=== PATIENT | female | born 1935 | race Caucasian/White ===

== ENCOUNTER 2019-09-04 04:17 | Inpatient (IN) ==
--- OUTSIDE RECORDS SUMMARY | 2019-09-04 04:20 | External Medical Summary | Continuity of Care Document ---
:1935 Author Name Carlos Rollins Address Unavailable Unavailable , Care Team Providers Name Role Phone Harpreet Rollins Unavailable [email or web address] Active medical history not documented Allergies and Adverse Reactions Allergy history not documented Medications Medications not documented Procedures Procedures not documented Immunizations Immunizations not documented Plan of Treatment Planned Observations Planned Goals not documented Results No Known Results Results not documented
[2019-09-04] MEDS ORDERED: SODIUM CHLORIDE 0.9% 1000ML 1,000 ML IV SCH (06:15)
[2019-09-04 06:38] LABS: Basophils # (auto) 0.01 K/uL (0-0.2); Basophils % (auto) 0.1 %; Eosinophils # (auto) 0.02 K/uL (0-0.5); Eosinophils % (auto) 0.1 %; Hematocrit (blood only) 45.4 % (37-47); Hemoglobin 15.5 g/dL (12.0-16.0); Immature Granulocytes # (auto) 0.04 K/uL (0.00-0.02); Immature Granulocytes % (auto) 0.3 %; Lymphocytes # (auto) 0.93 K/uL (1.2-3.4); Lymphocytes % (auto) 6.7 %; Mean Corpuscular Hemoglobin 31.1 pg (25-34); Mean Corpuscular Hgb Conc 34.1 g/dL (32-36); Mean Corpuscular Volume 91.2 fL (80-100); Mean Platelet Volume 11.5 fL (7.4-10.4); Monocytes % (auto) 7.3 %; Neutrophils # (auto) 11.79 K/uL (1.4-6.5); Neutrophils % (auto) 85.5 %; Platelet Count 161 K/uL (130-400); RDW Coefficient of Variation 12.7 % (11.5-14.5); RDW Standard Deviation 42.2 fL (36.4-46.3); Red Blood Count 4.98 M/uL (4.2-5.4); White Blood Count 13.79 K/uL (4.8-10.8)
[2019-09-04 06:50] LABS: INR 1.1 (0.9-1.1); Partial Thromboplastin Ratio 0.9; Partial Thromboplastin Time 24.7 Seconds (21.0-31.0); Prothrombin Time 10.9 Seconds (9.0-12.0)
[2019-09-04 06:57] LABS: BUN Creatinine Ratio 23.4 (10-20); Blood Urea Nitrogen 17 mg/dl (7-18); Calcium 10.1 mg/dl (8.5-10.1); Carbon Dioxide 30 mmol/L (21-32); Chloride 103 mmol/L (98-107); Est GFR (African American) 87.4; Est GFR (Non-African American) 75.4; Glucose 110 mg/dl (70-99); Potassium 4.3 mmol/L (3.5-5.1); Sodium 140 mmol/L (136-145)
[2019-09-04 06:59] LABS: Appearance Urine Clear (Clear); Bilirubin Urine Negative (Negative); Blood Urine Negative (Negative); Color Urine Yellow; Glucose Urine UA Negative (Negative); Ketones Urine Trace (Negative); Leukocyte Esterase Urine Negative (Negative); Nitrite Urine Negative (Negative); Protein Urine Negative (Negative); Specific Gravity Urine 1.012 (1.000-1.030); Urobilinogen Urine Negative (Negative)
[2019-09-04] MEDS: MoRPHine SULFATE 2 MG/ML CARP IV PRN ×4 (07:26→23:55)
--- NOTE | 2019-09-04 08:03 | XRay Report ---
SINGLE VIEW LEFT KNEE CLINICAL HISTORY: Left knee injury. FINDINGS: A crosstable lateral view of the left knee is obtained. No prior studies are available for comparison at the time of dictation. The AP view could not be obtained as the patient was unable to e xtend the knee. The skeletal structures are osteopenic. There is no radiographic evidence of fracture on this lateral view. Degenerative narrowing is seen at the patellofemoral articulation. There is no significant joint effusion. The overlying soft tissues are normal as visualized. IMPRESSION: There is no radiographic evidence of left knee fracture on this lateral projection. Electronically signed by: Michael Molina M.D. 09/04/2019 8:02 AM
--- NOTE | 2019-09-04 08:06 | XRay Report ---
SINGLE VIEW PELVIS; SINGLE VIEW LEFT HIP CLINICAL HISTORY: Fall with left leg injury. FINDINGS: An AP view of the pelvis with frog-leg views of the left hip are obtained. No prior studies are available for comparison at the time of dictation. The skeletal structures are osteopenic. There is an impacted and distracted subcapital fracture of the left femur. There is superior displacement of the femoral neck. No additional fracture is seen involving the right hip or the bony pelvis. Moder ate to advanced joint space narrowing is present in both hips. Degenerative sclerosis is seen in the sacroiliac joints. Soft tissue edema overlies the left hip. No bowel obstruction is seen. There is mo derate colonic fecal retention. IMPRESSION: 1. There is an impacted and distracted subcapital fracture of the left femur with overlying soft tiss ue edema. 2. No additional fracture is seen involving the hips or bony pelvis. Electronically signed by: Michael Molina M.D. 09/04/2019 8:04 AM
--- NOTE | 2019-09-04 08:07 | XRay Report ---
SINGLE VIEW CHEST CLINICAL HISTORY: Trauma. Fall. FINDINGS: An AP, portable, semierect chest radiograph is compared to study dated 07/01/2007. The exam ination is degraded by portable technique and patient rotation. The patient's head partially obscures the apices. The heart is mildly enlarged noting atherosclerotic calcification of the thoracic aorta. The pulmonary vasculature is noncongested. Chronic interstitial thickening is similar to previous. N o airspace consolidation or large pleural effusion is identified. No pneumothorax is seen. The skelet al structures are osteopenic. The bony thorax is grossly intact. Advanced degenerative change and def ormity is present in the shoulders. IMPRESSION: Mild cardiac enlargement with no acute cardiopulmonary abnormality. ACT 112: Negative or not required by law. Electronically signed by: Michael Molina M.D. 09/04/2019 8:06 AM
[2019-09-04] MEDS ORDERED: POLYETHYLENE (MIRALAX) 17 GM PACK PO PRN (08:49)
[2019-09-04] MEDS ORDERED: ACETAMINOPHEN 325 MG TAB PO PRN (08:49)
[2019-09-04] MEDS ORDERED: ONDANSETRON INJ 2 MG/ML 2 ML VIAL IV PRN (08:49)
--- NOTE | 2019-09-04 08:55 | Discharge Summary ---
Date of Service September 04, 2019 Discharge Data Allergies Allergy/AdvReac Type Severity Reaction Status Date / Time iodine Allergy Mild rash Verified 09/04/19 04:40 Sulfa (Sulfonamide Allergy Mild RASH Verified 09/04/19 04:40 Antibiotics) Consultations 09/04/19 06:10 Consult Case Management - Discharge Planning Routine 09/04/19 06:52 ED Decision to Admit Stat 09/04/19 07:04 Consult Orthopedic Surgery Stat Discharge Plan Visit Data Patient Disposition: Being Evaluated by Hospitalist Forms Stand Alone Forms: [facility] Prescriptions Prescriptions: No Action carbidopa-levodopa 25-100 mg Tablet 1 tab PO TID RF: 0 cholecalciferol (vitamin D3) [Vitamin D3] 400 unit Capsule 400 unit PO DAILY RF: 0 citalopram 20 mg Tablet 20 mg PO DAILY RF: 0 levothyroxine 50 mcg Tablet 50 mcg PO DAILY RF: 0 metoprolol succinate 25 mg Tablet Extended Release 24 Hr 25 mg PO DAILY RF: 0 rasagiline [Azilect] 1 mg Tablet 1 mg PO QPM RF: 0 Referrals Referrals: Elvis Cabral DO [Primary Care Provider] -
--- NOTE | 2019-09-04 09:23 | History & Physical Report ---
Date of Service September 04, 2019 Assessment & Plan (1) Fall: (2) Subcapital fracture of left hip: Orthopedics service consulted in ED Pain management in ED, IV morphine Patient will be n.p.o. until evaluated by surgery - and possible procedure discussed IV fluids, normal saline started in ED, will continue will admit patient to telemetry, even though she has no known cardiac conditions, and EKG in ED showed sinus rhythm as well as on telemetry pt remained in sinus rhythm, patient previously reported dizziness to her , will continue monitor if pt was dizzy, this was most likely due to dehydration, and therefore will continue IV fluids (3) Left thigh pain: As above Poor appetite, progressive weight loss, patient is possibly malnourished -Per , reportedly patient does not eat or drink much, small amount of ketones found in urine, BUN over creatinine ratio larger than 20 -After pt's surgery, plan to consult nutrition (4) Parkinson's disease: We will continue her home medications, carbidopa-levodopa, and rasagiline, once she is ok to take p.o. (5) Hypothyroidism: We will continue levothyroxine (6) DVT prophylaxis: SCDs, further recs for DVT ppx per Ortho CODE STATUS: CODE STATUS discussed with the patient and her , patient was not clear about her wishes, and therefore agreed to be full code for now. Per , patient had a paperwork filled out previously and he thought that she said DNR before. POAs are her 2 sons. We will discuss further. History of Present Illness Chief Complaint: Left thigh/hip pain Primary Care Provider: Elvis Cabral DO Mrs. Pema Carias is an 84-year-old female, with history of hypothyroidism, Parkinson's disease, osteoporosis, who fell earlier this morning, and was diagnosed in ED with left hip fracture. Patient lives with her , provides most of the history, says that patient stood up in the morning, and was walking around the bed, and tripped over the bench at the foot of the bed, however at that time she was able to catch herself and he did not think she hurt herself. However she got up again later and unfortunately the same thing happened and he found her laying over the bench. She was complaining about left thigh pain, and so he brought her to the hospital, where she was diagnosed with a left hip fracture. Patient denies any loss of consciousness, however she told her previously that she felt little dizzy. Patient's confirms that unfortunately patient has very poor appetite which has been worsening and so she does not eat or drink very much. Denies any known heart condition, patient also does not take any cardiac medications. Patient denies any chest pain, shortness of breath, abdominal pain, nausea or vomiting. She also denies any dizziness or lightheadedness. She just says that she feels very tired and she has pain in her leg. Patient's mentions that she usually walks by herself, does not use a walker, ho wever her walking has been slowing down in the past couple of months. Patient is treated for Parkinson's disease and hypothyroidism. In the ED, EKG showed normal sinus rhythm, she is currently on telemetry and continues to be in sinus rhythm. Chest x-ray does not show any acute abnormality. Patient denies any recent illness. She received morphine in the ED for pain. She is currently drowsy however she is able to answer questions appropriately. mentions that they have 2 sons, they both live in [place], and they are patient's POA's. He mentions that patient filled out paperwork regarding her CODE STATUS and wishes however he does not have the paperwork with him. He also says that at that time he believes she wanted to be DNR however he is not sure. When I talked to the patient, she could not give me a straight answer regarding her CODE STATUS, and therefore we will evaluate that again later for now we will keep her full code. Allergies Allergy/AdvReac Type Severity Reaction Status Date / Time iodine Allergy Mild rash Verified 09/04/19 04:40 Sulfa (Sulfonamide Allergy Mild RASH Verified 09/04/19 04:40 Antibiotics) Home Medications Home Medications Medication Instructions Recorded Confirmed Type carbidopa-levodopa 1 tab PO TID 09/04/19 09/04/19 History cholecalciferol (vitamin D3) 400 unit PO DAILY 09/04/19 09/04/19 History [Vitamin D3] citalopram 20 mg PO DAILY 09/04/19 09/04/19 History levothyroxine 50 mcg PO DAILY 09/04/19 09/04/19 History metoprolol succinate 25 mg PO DAILY 09/04/19 09/04/19 History rasagiline [Azilect] 1 mg PO QPM 09/04/19 09/04/19 History Past Med/Surg History Medical History (Updated 09/04/19 @ 12:32 by David Dolan MD) Hypothyroidism Osteoporosis Parkinson's disease Family History (Updated 09/04/19 @ 09:07 by David Dolan MD) Mother , no significant PMH No problems noted. Father , no significant PMH No problems noted. Other No significant family history Social History Preferred Language: [place] Irish Communication Ability: Effective Beliefs That Will Affect Care: None marital status: Current Living Situation: Spouse Current Living Situation Comment: [facility] Other Information That Helps Us Care for You: No Feels Safe at Home: Yes Safety Concerns: Feels Safe At This Time Smoking Status: Never smoker Hx Alcohol Use: No Hx Substance Use: No Review of Systems Review of Systems: All systems reviewed & are unremarkable except as noted in HPI & below Constitutional: as per Subjective / HPI; no fever and no chills Poor appetite Eyes: as per Subjective / HPI; no eye pain and no problem reported Ear, Nose, Mouth, Throat: as per Subjective / HPI and + dizziness (Mentioned to her earlier, currently denies); no ear pain, no nasal discharge and no sore throat Respiratory: no cough, no dyspnea and no pain on inspiration Cardiovascular: no chest pain, no dyspnea on exertion, no palpitations and no edema Gastrointestinal: no abdominal pain, no nausea and no vomiting Genitourinary: no dysuria Musculoskeletal: + joint pain (Left thigh, left hip pain) Integumentary: as per Subjective / HPI; no rash and no lesions Neurologic: + falls Psychiatric: as per Subjective / HPI and + behavioral changes (Some slowly progressing, due to parkinsonism) Endocrine: as per Subjective / HPI; no polydipsia and no polyphagia Hematologic / Lymphatic: as per Subjective / HPI; no easy bleeding Allergy / Immunological: as per Subjective / HPI; no itchy eyes, no lip swelling, no cough and no dyspnea Physical Exam Physical Exam: Elderly female lying in bed, in slight discomfort due to pain, and on nasal cannula Constitutional: + ill appearing and + thin Eyes: PERRL, conjunctivae normal, anicteric sclerae EOM intact bilaterally ENMT: external ear and nose normal, oropharynx normal Neck: trachea midline, no thyromegaly normal visual inspection Respiratory: normal respiratory effort, lungs clear to auscultation Auscultation: no rales, no rhonchi and no wheezes Cardiovascular: RRR, no murmur, no edema Chest (Breasts): Chest: normal inspection of chest Gastrointestinal (Abdomen): Inspection/Auscultation: abdomen normal to inspection and normal bowel sounds; abdomen not distended Percussion/Palpation: abdomen soft; abdomen nontender and no guarding Musculoskeletal: Head/Neck/Chest: normocephalic and head atraumatic Extremities: + limited ROM of extremities (Due to pain in the left hip, left thigh (secondary to left hip fracture), low extremities are well-perfused, good capillary refill, no sensory loss noted) Skin: no rashes, warm and dry Neurologic: PERRL, EOMI, accommodation nl, no face palsy, no dysarthria moves all extremities Psychiatric: Orientation: oriented x 3 Affect: + flat affect Speech slow, patient is drowsy, however able to answer questions Genitourinary: no CVA tenderness Lymphatic: no cervical or axillary lymphadenopathy Results & Data Vital Signs (Past 12 Hours) Vital Signs Temp Pulse Pulse Resp BP BP Pulse Ox 09/04/19 09:05 97 H 18 151/83 H 91 09/04/19 08:23 92 H 20 132/98 92 09/04/19 07:21 93 H 20 143/86 H 95 09/04/19 04:46 88 L 09/04/19 04:43 36.3 C L 90 20 156/102 H 88 L Laboratory Results 09/04/19 09/04/19 09/04/19 Range/Units 07:03 06:30 06:26 WBC (4.8-10.8) K/uL RBC (4.2-5.4) M/uL Hgb (12.0-16.0) g/dL Hct (37-47) % MCV (80-100) fL MCH (25-34) pg MCHC (32-36) g/dL RDW Std Deviation (36.4-46.3) fL RDW Coeff of Carisa (11.5-14.5) % Plt Count (130-400) K/uL MPV (7.4-10.4) fL Immature Gran % (Auto) % Neut % (Auto) % Lymph % (Auto) % [place] % (Auto) % Eos % (Auto) % Baso % (Auto) % Immature Gran # (Auto) (0.00-0.02) K/uL Neut # (Auto) (1.4-6.5) K/uL Lymph # (Auto) (1.2-3.4) K/uL [place] # (Auto) (0.11-0.59) K/uL Eos # (Auto) (0-0.5) K/uL Baso # (Auto) (0-0.2) K/uL PT (9.0-12.0) Seconds INR (0.9-1.1) APTT (21.0-31.0) Seconds PTT Ratio Sodium (136-145) mmol/L Potassium (3.5-5.1) mmol/L Chloride (98-107) mmol/L Carbon Dioxide (21-32) mmol/L Anion Gap (3-11) BUN (7-18) mg/dl Creatinine (0.6-1.2) mg/dl Est Cr Clr Drug Dosing Est GFR ( Amer) Est GFR (Non-Af Amer) BUN/Creatinine Ratio (10-20) Glucose (70-99) mg/dl Calcium (8.5-10.1) mg/dl Urine Color Yellow Urine Appearance Clear (Clear) Urine pH 7.0 (4.5-7.5) Ur Specific [place] 1.012 (1.000-1.030) Urine Protein Negative (Negative) Urine Glucose (UA) Negative (Negative) Urine Ketones Trace H (Negative) Urine Blood Negative (Negative) Urine Nitrite Negative (Negative) Urine Bilirubin Negative (Negative) Urine Urobilinogen Negative (Negative) Ur Leukocyte Esterase Negative (Negative) Blood Type O Positive Cancelled Antibody Screen NEGATIVE Cancelled 09/04/19 09/04/19 09/04/19 Range/Units 06:26 06:26 06:26 WBC 13.79 H (4.8-10.8) K/uL RBC 4.98 (4.2-5.4) M/uL Hgb 15.5 (12.0-16.0) g/dL Hct 45.4 (37-47) % MCV 91.2 (80-100) fL MCH 31.1 (25-34) pg MCHC 34.1 (32-36) g/dL RDW Std Deviation 42.2 (36.4-46.3) fL RDW Coeff of Carisa 12.7 (11.5-14.5) % Plt Count 161 (130-400) K/uL MPV 11.5 H (7.4-10.4) fL Immature Gran % (Auto) 0.3 % Neut % (Auto) 85.5 % Lymph % (Auto) 6.7 % [place] % (Auto) 7.3 % Eos % (Auto) 0.1 % Baso % (Auto) 0.1 % Immature Gran # (Auto) 0.04 H (0.00-0.02) K/uL Neut # (Auto) 11.79 H (1.4-6.5) K/uL Lymph # (Auto) 0.93 L (1.2-3.4) K/uL [place] # (Auto) 1.00 H (0.11-0.59) K/uL Eos # (Auto) 0.02 (0-0.5) K/uL Baso # (Auto) 0.01 (0-0.2) K/uL PT 10.9 (9.0-12.0) Seconds INR 1.1 (0.9-1.1) APTT 24.7 (21.0-31.0) Seconds PTT Ratio 0.9 Sodium 140 (136-145) mmol/L Potassium 4.3 (3.5-5.1) mmol/L Chloride 103 (98-107) mmol/L Carbon Dioxide 30 (21-32) mmol/L Anion Gap 7.0 (3-11) BUN 17 (7-18) mg/dl Creatinine 0.74 (0.6-1.2) mg/dl Est Cr Clr Drug Dosing Not Reportable Est GFR ( Amer) 87.4 Est GFR (Non-Af Amer) 75.4 BUN/Creatinine Ratio 23.4 H (10-20) Glucose 110 H (70-99) mg/dl Calcium 10.1 (8.5-10.1) mg/dl Urine Color Urine Appearance (Clear) Urine pH (4.5-7.5) Ur Specific [place] (1.000-1.030) Urine Protein (Negative) Urine Glucose (UA) (Negative) Urine Ketones (Negative) Urine Blood (Negative) Urine Nitrite (Negative) Urine Bilirubin (Negative) Urine Urobilinogen (Negative) Ur Leukocyte Esterase (Negative) Blood Type Antibody Screen Medications Administered Current Inpatient Medications Acetaminophen (Tylenol) 650 mg PO Q4H PRN PRN Reason: Pain or Fever Stop: 10/04/19 08:48 Sodium Chloride (Nss 1000ml) 1,000 mls @ 150 mls/hr IV .Q6H40M TANESHA Stop: 09/04/19 12:54 Last Admin: 09/04/19 07:28 Dose: 150 mls/hr Documented by: Morphine Sulfate (Morphine Sulfate) 2 mg IV Q1H PRN PRN Reason: Moderate Pain (Rating 3,4,5,6) Stop: 09/18/19 06:07 Last Admin: 09/04/19 07:26 Dose: 2 mg Documented by: Ondansetron HCl (Zofran) 4 mg IV Q6H PRN PRN Reason: Nausea Stop: 10/04/19 08:48 Polyethylene Glycol (Miralax Powder Packet) 17 gm PO DAILY PRN PRN Reason: Constipation Stop: 10/04/19 08:48 Code Status & VTE Plan VTE Prophylaxis Plan VTE Prophylaxis will be ordered: Yes (1) Fall Encounter type: initial encounter Qualified Code(s): W19.XXXA - Unspecified fall, initial encounter (2) Subcapital fracture of left hip Encounter type: initial encounter Fracture type: closed Qualified Code(s): S72.012A - Unspecified intracapsular fracture of left femur, initial encounter for closed fracture
[2019-09-04] MEDS: CHOLECALCIFEROL (VITAMIN D) 400 UNITS TABLET PO SCH (16:42)
--- NOTE | 2019-09-04 19:05 | Consultation Report ---
DATE OF CONSULTATION: 09/04/2019 PERTINENT HISTORY: This is an 84-year-old female seen at the request of Dr. Dolan and Dr. Cabral. This is an 84-year-old female who was in her state of normal health with multiple medical issues as listed below. She had a mechanical fall earlier this morning. Unable to ambulate and had significant pain. The patient stood up in the morning, was walking on the bed, tripped over the bench when she got up again after she had a fall later unfortunately had a secondary fall, found her lying over the bench. She had left hip pain. Presented to the hospital. She was evaluated and radiographs were obtained, noting a displaced left subcapital hip fracture. The patient was admitted to the hospitalist service. Orthopedics was consulted. No head or neck trauma. No loss of consciousness. She typically does not use a walker, however, walking has been slowing down past several months. She has underlying Parkinson's disease and hypothyroidism. PAST MEDICAL HISTORY: Parkinson's disease, progressive osteoporosis, hypothyroidism, hypertension. PAST SURGICAL HISTORY: Noncontributory. ALLERGIES: IODINE WITH MILD RASH. SULFA, ANTIBIOTICS ALLERGY MILD RASH. MEDICATIONS: Carbidopa/levodopa vitamin D3, citalopram, levothyroxine, metoprolol, and Azilect. SOCIAL HISTORY: She is . She lives with her spouse. She is retired, apartment at the [facility]. Denies tobacco, alcohol or drug use. She has 2 sons. They both live in [place]. They are both POA, however, the patient and her make their medical decisions at this time. PHYSICAL EXAMINATION: GENERAL: This is a pleasant 84-year-old female with obvious Parkinson's changes. She is present with her , her son and her [id number]. She is alert and oriented x3. Speech clear and fluent. Affect is appropriate for parkinsonism. No acute pain or distress. EXTREMITIES: Examination of the left hip demonstrates slight shortening of the left lower extremity compared to the right. She has tenderness to palpation of the left hip, discomfort with active and passive range of motion of the left lower extremity due to pain in the left hip. Extremities are well perfused. Palpable pedal pulses bilaterally. Radiographs reviewed demonstrating 100% displaced left subcapital hip fracture. Osteopenia is evident. Mild sclerosis, bilateral acetabuli. No other secondary fractures noted. LABORATORIES: Reviewed. IMPRESSION: Left displaced subcapital hip fracture status post mechanical fall. RECOMMENDATION: Hemiarthroplasty, left hip as the patient had no prior prodrome of left hip pain or complaints prior to the fall. The medical optimization and surgical clearance. N.p.o. after midnight for planned surgical repair tomorrow. Consent was obtained from the chart. All potential risks, benefits, complications, alternatives, rehab were discussed with the patient and the family. They are amenable to proceed tomorrow. Surgical procedure may be performed by my partner Dr. Bassam Bernard, if he should be available prior to my availability tomorrow. Thank you for the opportunity to consult in care of this patient. ALVIN
[2019-09-04] MEDS: SODIUM CHLORIDE 0.9% 500 ML IV SCH (19:43)
[2019-09-04] MEDS: RASAGILINE 1 MG PO SCH (21:07)
[2019-09-04] MEDS: CARBIDOPA/LEVODOPA 25/100MG TAB PO SCH (21:07)
--- NOTE | 2019-09-04 22:03 | Electrocardiogram Report ---
Test Reason : Blood Pressure : / mmHG Vent. Rate : 093 BPM Atrial Rate : 093 BPM P-R Int : 150 ms QRS Dur : 080 ms QT Int : 368 ms P-R-T Axes : 060 011 077 degrees QTc Int : 457 ms Poor data quality, interpretation may be adversely affected Normal sinus rhythm Possible Left atrial enlargement Septal infarct , age undetermined Nonspecific ST abnormality Abnormal ECG When compared with ECG of 04-APR-2004 08:26, Septal infarct is now Present Confirmed by Chivo Baxter ([id number]) on 09/04/2019 10:03:17 PM Referred By: REFERRED SELF Confirmed By:Chivo Baxter
[2019-09-05] MEDS: METOPROLOL SUCC 25MG EXT REL TAB PO SCH (01:00)
--- NOTE | 2019-09-05 01:56 | Emergency Department Note ---
Entered by Clarence Espinosa acting as a scribe for History of Present Illness General Chief complaint: Fall Stated complaint: fall, leg pain Time Seen by Provider: 09/04/19 04:21 Source: patient and family () History of Present Illness Onset (ago): day(s) (this morning) Location: lower extremity (left upper leg) Pain Consistency: + constant Quality: + other (left leg pain) Associated symptoms: + other (Negative for left ankle pain, left foot pain, and left hip pain, rib pain, neck pain, back pain, and chest pain.) The patient is an 84 year old female who presents to the emergency department with complaints of constant left leg pain following a fall occurring this [facility]. Per , the patient tripped over a bench this morning when she was moving around the corner of the bed. He states that the patient fell forward onto her hands and knees. The patient notes that she is now having leg upper leg pain. She denies any left ankle pain, left foot pain, and left hip pain, rib pain, neck pain, back pain, and chest pain. She denies hitting her head when she fell, no loss of consciousness. Per , the patient has a history of osteoporosis. Home Medications Home Medications Medication Instructions Recorded Confirmed Type carbidopa-levodopa 1 tab PO TID 09/04/19 09/04/19 History cholecalciferol (vitamin D3) 400 unit PO DAILY 09/04/19 09/04/19 History [Vitamin D3] citalopram 20 mg PO DAILY 09/04/19 09/04/19 History levothyroxine 50 mcg PO DAILY 09/04/19 09/04/19 History metoprolol succinate 25 mg PO DAILY 09/04/19 09/04/19 History rasagiline [Azilect] 1 mg PO QPM 09/04/19 09/04/19 History Allergies Allergy/AdvReac Type Severity Reaction Status Date / Time iodine Allergy Mild rash Verified 09/04/19 04:40 Sulfa (Sulfonamide Allergy Mild RASH Verified 09/04/19 04:40 Antibiotics) Past Med/Surg History Medical History (Updated 09/04/19 @ 12:32 by David Dolan MD) Hypothyroidism Osteoporosis Parkinson's disease Family History (Updated 09/04/19 @ 09:07 by David Dolan MD) Mother , no significant PMH No problems noted. Father , no significant PMH No problems noted. Other No significant family history Social History Preferred Language: Dominican Communication Ability: Effective Beliefs That Will Affect Care: None marital status: Current Living Situation: Spouse Current Living Situation Comment: APARTMENT AT [facility] Other Information That Helps Us Care for You: No Feels Safe at Home: Yes Safety Concerns: Feels Safe At This Time Smoking Status: Never smoker Hx Alcohol Use: No Hx Substance Use: No Review of Systems See HPI for pertinent positives & negatives. and A total of 10 systems reviewed and were otherwise negative Physical Exam Vital Signs Vital Signs - 24 hr 09/04/19 04:43 09/04/19 04:46 09/04/19 07:21 Temperature 36.3 C L Temperature Source Oral Pulse Rate 90 Pulse Rate [Left Finger] 93 H Respiratory Rate 20 20 Respiratory Effort / Characteristics Non-Labored Spontaneous Respiratory Depth Normal Blood Pressure 156/102 H Blood Pressure [Left Arm] 143/86 H Blood Pressure Mean 120 Blood Pressure Mean [Left Arm] 105 Pulse Oximetry 88 L 88 L 95 Oxygen Delivery Method Room Air Nasal Cannula Room Air Oxygen Flow Rate 0 Sepsis Recent Fever Within 48 Hours No Sepsis New/Unexplained Change in Mental Status No Sepsis Action Taken by Nursing No Action Required Oxygen Flow Rate - Titration 2 Pulse Oximetry Post Tiitration 95 09/04/19 08:23 Temperature Temperature Source Pulse Rate Pulse Rate [Left Finger] 92 H Respiratory Rate 20 Respiratory Effort / Characteristics Respiratory Depth Blood Pressure Blood Pressure [Left Arm] 132/98 Blood Pressure Mean Blood Pressure Mean [Left Arm] 109 Pulse Oximetry 92 Oxygen Delivery Method Nasal Cannula Oxygen Flow Rate 2 Sepsis Recent Fever Within 48 Hours Sepsis New/Unexplained Change in Mental Status Sepsis Action Taken by Nursing Oxygen Flow Rate - Titration Pulse Oximetry Post Tiitration GENERAL: alert, uncomfortable appearing, well nourished, in moderate distress, non-toxic EYE EXAM: normal conjunctiva, PERRL and EOM's grossly intact OROPHARYNX: no exudate, no erythema, lips, buccal mucosa, and tongue normal and mucous membranes are moist NECK: supple, no nuchal rigidity, no adenopathy, non-tender LUNGS: Clear to auscultation. Normal chest wall mechanics HEART: no murmurs, S1 normal and S2 normal ABDOMEN: abdomen soft, non-tender, normo-active bowel sounds, no masses, no rebound or guarding. BACK: Back is symmetrical on inspection and there is no deformity, no midline tenderness, no CVA tenderness. PELVIS: stable and non tender to palpation. SKIN: no rashes and no bruising UPPER EXTREMITIES: upper extremities are grossly normal. No deformity or evidence of trauma, full range of motion, normal pulses bilaterally. LOWER EXTREMITIES: No pitting edema. Legs held in flexion. Normal distal pulses, compartments soft. No evidence of deformity. Patient points to left mid thigh as area of maximal pain NEURO EXAM: Normal sensorium, cranial nerves II-XII grossly intact, normal speech, no gross weakness of arms, no gross weakness of legs. Course Course 0440: The patient was evaluated in room B9. A complete history and physical exam was performed. 0651: Upon reevaluation, the patient is stable. I discussed the findings and the treatment plan with the patient. She expresses agreement and understanding. I spoke with Cara of the [facility]. The patient will be evaluated for further management. 0703: I [facility] the [facility] Consultations Consultation #1: I reviewed the patient's [facility] He will evaluate the patient for further management. Time: 06:51 Consultation #2: I discussed the patient's case [facility] Time: 07:03 Administered Medications Carbidopa/Levodopa (Sinemet 25/100 Mg) 1 tab PO TID [facility] Stop: 10/04/19 20:59 Last Admin: 09/04/19 21:07 Dose: 1 tab Documented by: [id number] Sodium Chloride (Nss) 500 mls @ 80 mls/hr IV .Q6H15M [facility] Stop: 10/04/19 19:29 Last Infusion: 09/05/19 01:12 Dose: 0 mls/hr Documented by: [id number] Admin: 09/04/19 19:43 Dose: 80 mls/hr Documented by: [id number] Metoprolol Succinate (Toprol Xl) 25 mg PO QAM [facility] Stop: 10/05/19 00:29 Last Admin: 09/05/19 01:00 Dose: 25 mg Documented by: [id number] Morphine Sulfate (Morphine Sulfate) 2 mg IV Q1H PRN PRN Reason: Moderate Pain (Rating 3,4,5,6) Stop: 09/18/19 06:07 Last Admin: 09/04/19 23:55 Dose: 2 mg Documented by: [id number] Admin: 09/04/19 19:47 Dose: 2 mg Documented by: [id number] Admin: 09/04/19 14:46 Dose: 2 mg Documented by: [id number] Admin: 09/04/19 07:26 Dose: 2 mg Documented by: [id number] Rasagiline [Azilect] 1 Mg: Non-Formulary Patient's Own Med 0.5 ea PO PM TANESHA Stop: 10/04/19 20:59 Last Admin: 09/04/19 21:07 Dose: 0.5 tab Documented by: [id number] Vitamin D (Vitamin D3) 400 units PO DAILY [facility] Stop: 10/04/19 15:29 Last Admin: 09/04/19 16:42 Dose: 400 units Documented by: [id number] Discontinued Medications Sodium Chloride (Nss 1000ml) 1,000 mls @ 150 mls/hr IV .Q6H40M [facility] Stop: 09/04/19 12:54 Last Infusion: 09/04/19 14:45 Dose: 0 mls/hr Documented by: [id number] Admin: 09/04/19 07:28 Dose: 150 mls/hr Documented by: [id number] Miscellaneous (Order Awaiting Action) 1 ea N/A QS [facility] Stop: 10/04/19 15:59 Last Admin: 09/04/19 16:55 Dose: Not Given Documented by: [id number] Medical Decision Making Differential Diagnosis Differential diagnoses include major intracranial, cervical, spinal, thoracic, abdominal, pelvic and neurologic injury. Fracture, contusion, sprain, strain, laceration, abrasions included as well. Medical Records Attestation: I reviewed the patient's medical records. Home Medications Current Medication List: was personally reviewed by me Laboratory Data Attestation: I reviewed the patient's lab results. Result diagrams: 09/04/19 06:26 09/04/19 06:26 Lab Results 09/04/19 09/04/19 09/04/19 Range/Units 06:26 06:26 06:26 WBC 13.79 H (4.8-10.8) K/uL RBC 4.98 (4.2-5.4) M/uL Hgb 15.5 (12.0-16.0) g/dL Hct 45.4 (37-47) % MCV 91.2 (80-100) fL MCH 31.1 (25-34) pg MCHC 34.1 (32-36) g/dL RDW Std Deviation 42.2 (36.4-46.3) fL RDW Coeff of Carisa 12.7 (11.5-14.5) % Plt Count 161 (130-400) K/uL MPV 11.5 H (7.4-10.4) fL Immature Gran % (Auto) 0.3 % Neut % (Auto) 85.5 % Lymph % (Auto) 6.7 % Bee % (Auto) 7.3 % Eos % (Auto) 0.1 % Baso % (Auto) 0.1 % Immature Gran # (Auto) 0.04 H (0.00-0.02) K/uL Neut # (Auto) 11.79 H (1.4-6.5) K/uL Lymph # (Auto) 0.93 L (1.2-3.4) K/uL Bee # (Auto) 1.00 H (0.11-0.59) K/uL Eos # (Auto) 0.02 (0-0.5) K/uL Baso # (Auto) 0.01 (0-0.2) K/uL PT 10.9 (9.0-12.0) Seconds INR 1.1 (0.9-1.1) APTT 24.7 (21.0-31.0) Seconds PTT Ratio 0.9 Sodium 140 (136-145) mmol/L Potassium 4.3 (3.5-5.1) mmol/L Chloride 103 (98-107) mmol/L Carbon Dioxide 30 (21-32) mmol/L Anion Gap 7.0 (3-11) BUN 17 (7-18) mg/dl Creatinine 0.74 (0.6-1.2) mg/dl Est Cr Clr Drug Dosing Not Reportable Est GFR ( Amer) 87.4 Est GFR (Non-Af Amer) 75.4 BUN/Creatinine Ratio 23.4 H (10-20) Glucose 110 H (70-99) mg/dl Calcium 10.1 (8.5-10.1) mg/dl Urine Color Urine Appearance (Clear) Urine pH (4.5-7.5) Ur Specific [place] (1.000-1.030) Urine Protein (Negative) Urine Glucose (UA) (Negative) Urine Ketones (Negative) Urine Blood (Negative) Urine Nitrite (Negative) Urine Bilirubin (Negative) Urine Urobilinogen (Negative) Ur Leukocyte Esterase (Negative) Blood Type Antibody Screen 09/04/19 09/04/19 09/04/19 Range/Units 06:26 06:30 07:03 WBC (4.8-10.8) K/uL RBC (4.2-5.4) M/uL Hgb (12.0-16.0) g/dL Hct (37-47) % MCV (80-100) fL MCH (25-34) pg MCHC (32-36) g/dL RDW Std Deviation (36.4-46.3) fL RDW Coeff of Carisa (11.5-14.5) % Plt Count (130-400) K/uL MPV (7.4-10.4) fL Immature Gran % (Auto) % Neut % (Auto) % Lymph % (Auto) % Bee % (Auto) % Eos % (Auto) % Baso % (Auto) % Immature Gran # (Auto) (0.00-0.02) K/uL Neut # (Auto) (1.4-6.5) K/uL Lymph # (Auto) (1.2-3.4) K/uL Bee # (Auto) (0.11-0.59) K/uL Eos # (Auto) (0-0.5) K/uL Baso # (Auto) (0-0.2) K/uL PT (9.0-12.0) Seconds INR (0.9-1.1) APTT (21.0-31.0) Seconds PTT Ratio Sodium (136-145) mmol/L Potassium (3.5-5.1) mmol/L Chloride (98-107) mmol/L Carbon Dioxide (21-32) mmol/L Anion Gap (3-11) BUN (7-18) mg/dl Creatinine (0.6-1.2) mg/dl Est Cr Clr Drug Dosing Est GFR ( Amer) Est GFR (Non-Af Amer) BUN/Creatinine Ratio (10-20) Glucose (70-99) mg/dl Calcium (8.5-10.1) mg/dl Urine Color Yellow Urine Appearance Clear (Clear) Urine pH 7.0 (4.5-7.5) Ur Specific [place] 1.012 (1.000-1.030) Urine Protein Negative (Negative) Urine Glucose (UA) Negative (Negative) Urine Ketones Trace H (Negative) Urine Blood Negative (Negative) Urine Nitrite Negative (Negative) Urine Bilirubin Negative (Negative) Urine Urobilinogen Negative (Negative) Ur Leukocyte Esterase Negative (Negative) Blood Type Cancelled O Positive Antibody Screen Cancelled NEGATIVE Imaging Data Attestation: I personally reviewed and interpreted this imaging study as follows: My Impression: LEFT HIP/PELVIS X-RAY: Left subcapital hip fracture. 1 VIEW LEFT X-RAY: No fracture or dislocation. 1 VIEW CHEST X-RAY: No cardiomegaly. No effusions. No focal consolidation. No pulmonary edema. Patient rotated. No wide mediastinum. ECG Data Attestation: I personally reviewed and interpreted this ECG as follows: Indication: + weakness Rate (beats per minute): 93 Rhythm: + sinus rhythm ECG [place]: + Normal ECG ST segments: no ST depression and no ST elevation ECG Findings: no PACs and no PVCs Additional Comments: Normal intervals, baseline artifact noted. Blood Pressure Blood Pressure Findings: Elevated blood pressure Blood Pressure Disposition: further management by hospitalist MDM Narrative Patient seen here after a mechanical ground-level fall at home. Patient typically ambulates independently per her report without any cane or walker. Patient denied any recent symptoms or illness to otherwise suggest a syncopal event. states she has been acting normally since fall. She has been able to bear weight on the left leg and points to the left thigh is the most painful spot. Patient denied any other injury. X-rays revealed left subcapital hip fracture with distraction and displacement. Case discussed with hospitalist for medical management inpatient and discussed with orthopedics for additional evaluation and treatment. Patient and family made aware of all results and were in agreement with plan. Patient did have mild episode of hypoxia here, no abnormalities noted on chest x-ray. Unclear if poor tracing or evolving pulmonary process. Patient denies any shortness of breath at bedside, chest pain, denies cough or recent URI symptoms. No obvious increased work of breathing. Impression & Plan Fall, Left thigh pain, Subcapital fracture of left hip Discharge Plan Visit Data *Final* Discharge Date/Time: 09/04/19 09:05 Chief Complaint: Fall Stated Complaint: fall, leg pain ED Provider: Shonda Ramirez Discharge Problem: Fall, Left thigh pain, Subcapital fracture of left hip Patient Disposition: Admitted As Inpatient Discharge Instructions Interventions: ED Discharge Assessment Last Done: 09/04/19 09:05 Discharge Problem: Fall Qualifiers: Encounter type: initial encounter Qualified Code(s): W19.XXXA - Unspecified fall, initial encounter Subcapital fracture of left hip Qualifiers: Encounter type: initial encounter Fracture type: closed Qualified Code(s): S72.012A - Unspecified intracapsular fracture of left femur, initial encounter for closed fracture The scribe's documentation has been prepared under my direction and personally reviewed by me in its entirety. I confirm that the note above accurately reflects all work, treatment, procedures, and medical decision making performed by me.
[2019-09-05] MEDS: MoRPHine SULFATE 2 MG/ML CARP IV PRN (05:06)
[2019-09-05] MEDS ORDERED: ROPIVACAINE 0.5% HCL/PF 150 MG, BUPIVACAINE 0.5% MPF 30 ML, EPINEPHrine 30MG/30ML (OR U... INFIL SCH (06:00)
[2019-09-05] MEDS: LEVOTHYROXINE SODIUM 50 MCG TABLET PO SCH (06:01)
--- NOTE | 2019-09-05 06:57 | XRay Report ---
XR chest 1V portable CLINICAL HISTORY: low 02 COMPARISON STUDY: Chest radiograph September 04, 2019. FINDINGS: Incidental note is made of severe osteoarthritis of the glenohumeral joints. The patient is rotated. Mild cardiomegaly is noted without evidence for pulmonary edema. There is no pneumothorax o r pleural effusion. Mild bibasilar opacities are present. IMPRESSION: 1. Mild bibasilar opacities. Atelectasis is favored. An infectious process could appear similar altho ugh is considered less likely. 2. No evidence for pulmonary edema. Mild cardiomegaly. ACT 112: Negative or not required by law. Electronically signed by: Joe Waldron M.D. 09/05/2019 6:56 AM
[2019-09-05 07:00] LABS: Hematocrit (blood only) 41.7 % (37-47); Hemoglobin 13.8 g/dL (12.0-16.0); Mean Corpuscular Hgb Conc 33.1 g/dL (32-36); Mean Corpuscular Volume 90.7 fL (80-100); Mean Platelet Volume 10.9 fL (7.4-10.4); Platelet Count 116 K/uL (130-400); RDW Coefficient of Variation 12.8 % (11.5-14.5); RDW Standard Deviation 42.2 fL (36.4-46.3); White Blood Count 11.11 K/uL (4.8-10.8)
[2019-09-05 07:07] LABS: INR 1.2 (0.9-1.1); Prothrombin Time 11.9 Seconds (9.0-12.0)
[2019-09-05 07:32] LABS: Blood Urea Nitrogen 16 mg/dl (7-18); Calcium 9.3 mg/dl (8.5-10.1); Carbon Dioxide 28 mmol/L (21-32); Chloride 106 mmol/L (98-107); Est GFR (African American) 99.5; Est GFR (Non-African American) 85.8; Glucose Fasting 107 mg/dl (70-99); Potassium 4.1 mmol/L (3.5-5.1); Sodium 139 mmol/L (136-145)
[2019-09-05] MEDS: CARBIDOPA/LEVODOPA 25/100MG TAB PO SCH ×4 (07:48→21:09)
[2019-09-05] MEDS: CHOLECALCIFEROL (VITAMIN D) 400 UNITS TABLET PO SCH (07:48)
[2019-09-05] MEDS: CITALOPRAM 20 MG TAB PO SCH (07:48)
[2019-09-05] MEDS: SODIUM CHLORIDE 0.9% 500 ML IV SCH ×3 (07:55→20:33)
--- NOTE | 2019-09-05 08:04 | Anesthesiology Consultation ---
Date of Service September 05, 2019 Assessment & Plan (1) Encounter for pre-operative examination: Chart Review Chart Review: Acceptable Risk for Surgery, Patient NOT seen in Pre Admission Testing and entry level account executive initiated Consults Requested none Additional Notes Per chart, patient is reported to be alert and oriented x 3. Although record states patient takes Metoprolol, per hospitalist's note, patient does not n ormally take Metoprolol and has no prior history of cardiac disease. Fall was mechanical in origin. EKG shows possible new septal infarct, but per report, no concerning findings have been observed on telemetry. Per hospitalist, "Revised cardiac risk index for preoperative risk, is between 3.9 and 6%, for serious cardiac event. In terms of risk stratification, patient is a low risk for serious cardiopulmonary complications perioperatively." History Surgery Operation Date: 09/05/19 07:00 Proposed Procedures p Left Hip Hemiarthroplasty - Mark Willingham DO Height/Weight Weight: 41.8 kg Allergies Allergy/AdvReac Type Severity Reaction Status Date / Time iodine Allergy Mild rash Verified 09/04/19 04:40 Sulfa (Sulfonamide Allergy Mild RASH Verified 09/04/19 04:40 Antibiotics) Medications Home Medications Medication Instructions Recorded Confirmed Last Taken carbidopa-levodopa 1 tab PO TID 09/04/19 09/04/19 Unknown cholecalciferol (vitamin D3) 400 unit PO DAILY 09/04/19 09/04/19 Unknown [Vitamin D3] citalopram 20 mg PO DAILY 09/04/19 09/04/19 Unknown levothyroxine 50 mcg PO DAILY 09/04/19 09/04/19 Unknown metoprolol succinate 25 mg PO DAILY 09/04/19 09/04/19 Unknown rasagiline [Azilect] 1 mg PO QPM 09/04/19 09/04/19 Unknown Active Medications Generic Name Dose Route Start Last Admin Trade Name Freq PRN Reason Stop Dose Admin Carbidopa/Levodopa 1 tab 09/04/19 21:00 09/05/19 07:48 Sinemet 25/100 Mg PO 10/04/19 20:59 Not Given TID TANESHA Citalopram Hydrobromide 20 mg 09/05/19 09:00 09/05/19 07:48 Celexa PO 10/05/19 08:59 Not Given DAILY TANESHA Sodium Chloride 500 mls @ 50 mls/hr 09/04/19 19:30 09/05/19 07:55 Nss IV 10/04/19 19:29 50 mls/hr .Q10H TANEHSA Administration Levothyroxine Sodium 50 mcg 09/05/19 06:30 09/05/19 06:01 Synthroid PO 10/05/19 06:29 50 mcg DAILYBB TANESHA Administration Metoprolol Succinate 25 mg 09/05/19 00:30 09/05/19 01:00 Toprol Xl PO 10/05/19 00:29 25 mg QAM TANESHA Administration Morphine Sulfate 2 mg 09/04/19 06:08 09/05/19 05:06 Morphine Sulfate IV 09/18/19 06:07 2 mg Q1H PRN Administration Moderate Pain (Rating 3,4,5,6) Rasagiline [Azilect] 0.5 ea 09/04/19 21:00 09/04/19 21:07 1 Mg: Non-Formulary PO 10/04/19 20:59 0.5 tab Patient's Own Med PM TANESHA Administration Vitamin D 400 units 09/04/19 15:30 09/05/19 07:48 Vitamin D3 PO 10/04/19 15:29 Not Given DAILY TANESHA NPO Date Last Intake of Fluids: 09/05/19 Time Last Intake of Fluids: 00:00 Date Last Intake of Solids: 09/05/19 Time Last Intake of Solids: 00:00 Past Medical History Medical History Hypothyroidism Osteoporosis Parkinson's disease Past Family History Family History Mother , no significant PMH No problems noted. Father , no significant PMH No problems noted. Other No significant family history Social History Smoking Status: Never smoker Hx Alcohol Use: No Hx Substance Use: No Physical Exam Vital Signs Last Vital Signs Temp 36.6 C 09/05/19 07:51 Pulse 83 09/05/19 07:51 Resp 18 09/05/19 07:51 BP 169/77 H 09/05/19 07:51 Pulse Ox 95 09/05/19 07:51 Testing Laboratory Results 09/05/19 06:46 09/05/19 06:46 PT 11.9 Seconds (9.0-12.0) 09/05/19 06:46 INR 1.2 (0.9-1.1) H 09/05/19 06:46 APTT 24.7 Seconds (21.0-31.0) 09/04/19 06:26 Urine Color Yellow 09/04/19 06:30 Urine Appearance Clear (Clear) 09/04/19 06:30 Urine pH 7.0 (4.5-7.5) 09/04/19 06:30 Ur Specific [place] 1.012 (1.000-1.030) 09/04/19 06:30 Urine Protein Negative (Negative) 09/04/19 06:30 Urine Glucose (UA) Negative (Negative) 09/04/19 06:30 Urine Ketones Trace (Negative) H 09/04/19 06:30 Urine Nitrite Negative (Negative) 09/04/19 06:30 Ur Leukocyte Esterase Negative (Negative) 09/04/19 06:30 Blood Type O Positive 09/04/19 07:03 Antibody Screen NEGATIVE 09/04/19 07:03 Electrocardiogram Date: 09/04/19 Normal sinus rhythm rate of 93 bpm Possible Left atrial enlargement Septal infarct , age undetermined Nonspecific ST abnormality Abnormal ECG When compared with ECG of 04-APR-2004 08:26, Septal infarct is now Present
[2019-09-05] MEDS ORDERED: METOPROLOL SUCC 25MG EXT REL TAB PO SCH (09:00)
[2019-09-05] MEDS ORDERED: BACITRACIN INJ 50,000 UNIT VIAL ONE (16:08)
[2019-09-05] MEDS ORDERED: PROPOFOL IV EMULSION 10 MG/ML 20 ML VIAL IV ONE ×2 (16:08→19:14)
[2019-09-05] MEDS ORDERED: THROMBIN FOR SOLN 20000 UNIT KIT ONE (16:08)
[2019-09-05] MEDS ORDERED: fentaNYL citrate 100 MCG/2 ML VIAL ONE (16:09)
--- NOTE | 2019-09-05 16:19 | History & Physical Bridge Note ---
Date of Service September 05, 2019 History & Physical Bridge Note I have examined the patient, reviewed the History & Physical and in the interval since the performance of the History & Physical I have noted the following changes of clinical significance: no changes noted
[2019-09-05] MEDS ORDERED: CEFAZOLIN 2000MG 2,000 MG/15 ML SYR IV ONE (16:24)
[2019-09-05] MEDS ORDERED: CEFAZOLIN 2,000 MG/15 ML IV PUSH IV ONE (16:27)
[2019-09-05] MEDS ORDERED: fentaNYL citrate 100 MCG/2 ML VIAL IV PRN (16:34)
[2019-09-05] MEDS ORDERED: ePHEDrine sulfate 50 MG/ML AMP IV PRN (16:34)
[2019-09-05] MEDS ORDERED: ONDANSETRON INJ 2 MG/ML 2 ML VIAL IV PRN ×2 (16:34→19:54)
[2019-09-05] MEDS ORDERED: ATROPINE SULFATE 0.1 MG/ML 10ML SYR IV PRN (16:34)
[2019-09-05] MEDS ORDERED: ORTHO JOINT ANESTHETIC SQ SCH (17:00)
--- NOTE | 2019-09-05 18:43 | Post Operative Brief Note ---
Immediate Post Op Note v1 Date of Surgery September 05, 2019 Pre & Post Diagnosis Operation Date: 09/05/19 07:00 Pre-Op Diagnosis: left displaced subcapital hip fracture Post-Op Diagnosis: left displaced subcapital hip fracture I identified the patient and participated in the time-out.: Yes Procedure Operation Date: 09/05/19 07:00 Actual Procedures p Left Hip Hemiarthroplasty, uncemented press-fit Ayesha Accolade 2 size #3, UHR universal head bipolar component 43 mm, 26 mm femoral head +0 mm (Left) - Mark Willingham DO Surgeon Mark Willingham DO Public Safety Telecommunicator Asim Durán PA-C Estimated Blood Loss 25 Findings Consistent with Post-Op Diagnosis Specimens Bone and tissue left hip Drains Hemovac Drain (dual drain) Anesthesia Type Spinal MAC Complications none Disposition Accompanied Patient To Recovery: No Disposition: Recovery Room
[2019-09-05] MEDS ORDERED: PHENYLEPHRINE 100MCG/ML 5ML SYR ONE (19:14)
[2019-09-05] MEDS ORDERED: ePHEDrine sulfate 50 MG/ML SYR ONE (19:14)
[2019-09-05] MEDS ORDERED: LIDOCAINE HCL 2% 2 ML VIAL/AMP(20MG/ML) INFIL ONE (19:14)
[2019-09-05] MEDS ORDERED: ESMOLOL HCL INJ 10 MG/ML 10ML VIAL IV ONE (19:14)
--- NOTE | 2019-09-05 19:28 | Anesthesiology Progress Note ---
Date of Service September 05, 2019 Anesthesia Post Procedure Vital Signs Vital Signs: Temp Pulse Pulse Pulse Resp BP BP 09/05/19 19:18 87 14 156/82 H 09/05/19 19:03 37.6 C H 88 18 155/81 H 09/05/19 16:10 37.6 C H 88 20 186/104 H 09/05/19 15:37 36.9 C 89 18 188/86 H 09/05/19 11:18 37.5 C 87 20 174/81 H 09/05/19 07:51 36.6 C 83 18 169/77 H 09/05/19 03:18 37.1 C 87 20 161/83 H 09/04/19 23:09 99 H 09/04/19 22:08 37.1 C 107 H 19 168/90 H Pulse Ox 09/05/19 19:18 100 09/05/19 19:03 99 09/05/19 16:10 94 09/05/19 15:37 94 09/05/19 11:18 94 09/05/19 07:51 95 09/05/19 03:18 96 09/04/19 23:09 09/04/19 22:08 95 Pain Intensity Left Thigh: Pain Intensity: 0 Transfer of Care Handoff Completed per policy Notes Mental Status: alert / awake / arousable Patient Amnestic to Procedure: Yes Nausea / Vomiting: adequately controlled Pain: adequately controlled Airway Patency, RR, SpO2: stable & adequate BP & HR: stable & adequate Hydration State: stable & adequate Neuraxial Anesthesia: was administered and sensory block is resolving Anesthetic Complications: no major complications apparent
--- NOTE | 2019-09-05 19:44 | XRay Report ---
XR hip 1V LT w pelvis HISTORY: 84 years-old Female IN PACU - A/P PELVIS and LATERAL HIP left hip total joint arthroplasty COMPARISON: Pelvis and left hip radiographs 09/04/2019 TECHNIQUE: AP view of the pelvis with crosstable lateral view of the left hip FINDINGS: Left hip total joint arthroplasty. Expected postsurgical soft tissue swelling and deep tissue air is noted with surgical drainage catheter. Severe right hip osteoarthritis. No acute fracture or opaque f oreign body. IMPRESSION: Left hip total joint arthroplasty with expected postoperative findings. ACT 112: Negative or not required by law. The above report was generated using voice recognition software. It may contain grammatical, syntax o r spelling errors. Electronically signed by: Biju Duckworth M.D. 09/05/2019 7:42 PM
[2019-09-05] MEDS ORDERED: NALOXONE HCL 0.4 MG/1 ML VIAL/CARP IV PRN (19:54)
[2019-09-05] MEDS ORDERED: bisacodyL 10 MG SUPP PR PRN (19:54)
[2019-09-05] MEDS ORDERED: MAGNESIUM HYDROXIDE SUSP 30 ML UDC PO PRN (19:54)
[2019-09-05] MEDS ORDERED: METOCLOPRAMIDE HCL INJ 5 MG/ML 2 ML VIAL IV PRN (19:54)
[2019-09-05] MEDS ORDERED: ALUMINUM/MAGNESIUM SUSP 30 ML UDC PO PRN (19:54)
[2019-09-05] MEDS ORDERED: OXYCODONE HCL IR 5 MG TAB (IMMEDIATE RELEASE) PO PRN (19:54)
[2019-09-05] MEDS ORDERED: HYDROmorphone INJ 0.5 MG/0.5 ML SYR IV PRN (19:54)
[2019-09-05] MEDS: SODIUM CHLORIDE 0.9% 1000ML 1,000 ML IV SCH (21:00)
[2019-09-05] MEDS: RASAGILINE 1 MG PO SCH ×2 (21:01→21:09)
[2019-09-05] MEDS: DOCUSATE SODIUM 100 MG CAP PO SCH ×2 (21:01→21:09)
[2019-09-05] MEDS: SENNA 8.6 MG TAB PO SCH ×2 (21:02→21:09)
[2019-09-06] MEDS: CEFAZOLIN 1000MG 1,000 MG/7.5 ML SYR IV SCH ×2 (00:08→08:52)
[2019-09-06] MEDS: SODIUM CHLORIDE 0.9% 1000ML 1,000 ML IV SCH (06:27)
[2019-09-06] MEDS: LEVOTHYROXINE SODIUM 50 MCG TABLET PO SCH (06:28)
--- NOTE | 2019-09-06 06:53 | Hospitalist Progress Note ---
Date of Service September 05, 2019 Assessment & Plan (1) Fall: (2) Subcapital fracture of left hip: Orthopedics service consulted in ED Pain management in ED, IV morphine IV fluids, normal saline started in ED, will continue admitted to telemetry, even though she has no known cardiac conditions, and EKG in ED showed sinus rhythm as well as on telemetry pt remained in sinus rhythm, patient previously reported dizziness to her , will continue monitor if pt was dizzy, this was most likely due to dehydration, and therefore will continue IV fluids Now s/p L hip hemiarthroplasty (09/05/2019) w/ Dr. Willingham (3) Left thigh pain: As above Poor appetite, progressive weight loss, patient is possibly malnourished -Per , reportedly patient does not eat or drink much, small amount of ketones found in urine, BUN over creatinine ratio larger than 20 - consult nutrition (4) Parkinson's disease: We will continue her home medications, carbidopa-levodopa, and rasagiline (5) Hypothyroidism: We will continue levothyroxine (6) DVT prophylaxis: SCDs, further recs for DVT ppx per Ortho- plan for ASA 81 mg bid CODE STATUS: CODE STATUS discussed with the patient and her , patient was not clear about her wishes, and therefore agreed to be full code for now. Per , patient had a paperwork filled out previously and he thought that she said DNR before. POAs are her son. We will discuss further. Subjective Patient seen and examined in her bed, after her left hip fracture repair. Patient is drowsy from anesthesia. Denies any pain, reports no complaints at this time. Family at the bedside and updated. Review of Systems Review of Systems: Unobtainable due to cognitive status Patient is drowsy from anesthesia, arousable Physical Exam Constitutional: + ill appearing and + thin Eyes: PERRL, conjunctivae normal, anicteric sclerae EOM intact bilaterally ENMT: external ear and nose normal, oropharynx normal Neck: trachea midline, no thyromegaly normal visual inspection Respiratory: normal respiratory effort, lungs clear to auscultation Auscultation: no rales, no rhonchi and no wheezes Cardiovascular: RRR, no murmur, no edema Chest (Breasts): Chest: normal inspection of chest Gastrointestinal (Abdomen): Inspection/Auscultation: abdomen normal to inspection and normal bowel sounds; abdomen not distended Percussion/Palpation: abdomen soft; abdomen nontender and no guarding Musculoskeletal: Head/Neck/Chest: normocephalic and head atraumatic Extremities: + limited ROM of extremities (left hip fracture, low extremities are well-perfused, good capillary refill, no sensory loss noted) Skin: no rashes, warm and dry Neurologic: PERRL, EOMI, accommodation nl, no face palsy, no dysarthria moves all extremities Psychiatric: Orientation: oriented x 3 drowsy from anesthesia Genitourinary: no CVA tenderness Lymphatic: no cervical or axillary lymphadenopathy Results & Data ([facility]) Vital Signs (Past 12 Hours) Vital Signs Temp Pulse Pulse Resp BP BP Pulse Ox 09/05/19 22:50 95 09/05/19 22:40 36.6 C 82 20 110/64 84 L 09/05/19 21:40 36.6 C 89 19 146/80 H 99 09/05/19 21:19 36.4 C L 94 H 18 135/69 90 09/05/19 20:24 36.8 C 102 H 16 143/69 H 90 09/05/19 19:59 36.8 C 94 H 18 137/79 96 09/05/19 19:40 36.8 C 90 16 131/80 94 09/05/19 19:30 91 H 16 134/82 96 09/05/19 19:20 93 H 19 147/81 H 94 09/05/19 19:10 87 14 156/82 H 100 09/05/19 19:03 37.6 C H 88 18 155/81 H 99 Laboratory Results reviewed Medications Administered reviewed (1) Subcapital fracture of left hip Encounter type: initial encounter Fracture type: closed Qualified Code(s): S72.012A - Unspecified intracapsular fracture of left femur, initial encounter for closed fracture (2) Fall Encounter type: initial encounter Qualified Code(s): W19.XXXA - Unspecified fall, initial encounter
[2019-09-06 06:55] LABS: Blood Urea Nitrogen 22 mg/dl (7-18); Calcium 8.9 mg/dl (8.5-10.1); Carbon Dioxide 27 mmol/L (21-32); Chloride 108 mmol/L (98-107); Est GFR (African American) 91.9; Est GFR (Non-African American) 79.3; Glucose 146 mg/dl (70-99); Glucose Fasting 146 mg/dl (70-99); Potassium 4.4 mmol/L (3.5-5.1); Sodium 140 mmol/L (136-145)
[2019-09-06 07:12] LABS: Basophils # (auto) 0.01 K/uL (0-0.2); Basophils % (auto) 0.1 %; Hematocrit (blood only) 36.2 % (37-47); Hemoglobin 11.9 g/dL (12.0-16.0); Immature Granulocytes # (auto) 0.03 K/uL (0.00-0.02); Immature Granulocytes % (auto) 0.3 %; Lymphocytes # (auto) 0.43 K/uL (1.2-3.4); Lymphocytes % (auto) 3.8 %; Mean Corpuscular Hemoglobin 30.1 pg (25-34); Mean Corpuscular Hgb Conc 32.9 g/dL (32-36); Mean Corpuscular Volume 91.6 fL (80-100); Monocytes % (auto) 8.9 %; Neutrophils # (auto) 9.79 K/uL (1.4-6.5); Neutrophils % (auto) 86.9 %; Platelet Count 105 K/uL (130-400); Platelet Estimate Decreased (Normal); RDW Coefficient of Variation 12.7 % (11.5-14.5); RDW Standard Deviation 42.9 fL (36.4-46.3); Red Blood Count 3.95 M/uL (4.2-5.4); White Blood Count 11.26 K/uL (4.8-10.8)
--- NOTE | 2019-09-06 08:03 | Operative Report ---
DATE OF OPERATION: 09/05/2019 PREOPERATIVE DIAGNOSIS: Left 100% displaced subcapital femoral neck fracture of the left hip. POSTOPERATIVE DIAGNOSIS: Left 100% displaced subcapital femoral neck fracture of the left hip. OPERATION: Hemiarthroplasty of left hip using a Ayesha uncemented pressfit size 3 Accolade II femoral stem with a UHR universal head bipolar component 43 mm outer diameter and a V40 Ayesha 26 mm outer diameter, +0 mm neck femoral head. SURGEON: Mark Willingham DO. BOX GLUER: Asim Durán PA-C, who was present for patient positioning, sterile prep and drape, management of retractors and instruments. He was present through the critical portions of the case including wound closure, application of sterile dressing and transport of the patient to recovery. ANESTHESIA: Spinal with local and sedation. SPECIMENS: Bone and tissue left hip. DRAINS: Hemovac x2. COMPLICATIONS: None. BLOOD LOSS: 25 mL. PERTINENT HISTORY: This is an 84-year-old female who sustained a mechanical fall at home. She is admitted to the hospital to the hospitalist service. X-rays were obtained noting a displaced left femoral neck fracture. The patient is scheduled for surgery as indicated after medical optimization. All potential risks, benefits, complications, alternatives, rehab, potential for incomplete relief of symptoms, need for further surgery, DVT, PE, , persistent pain, swelling, scarring, weakness, neurovascular injury, wound complications, hardware failure, nonunion, malunion, bone fracture were discussed with the patient and the family, they all decided to proceed with procedure as indicated. PROCEDURE: The patient was taken to the operative suite and placed supine on the Operating Room table. After review of the consent, identification of proper operative site, the patient was sedated. Spinal anesthetic was administered without difficulty. The patient was then placed in a left lateral decubitus position with the affected side up. Stulberg positioning pads were placed on the OR table. All bony prominences were properly padded and protected including use of an axillary roll. After the right hip was then sterilely prepped and draped in usual fashion, a 10 blade scalpel incision was made centered over the anterior one third of the greater trochanter. The incision was deepened to subcutaneous tissue. Meticulous hemostasis with electrocautery. Full thickness skin flaps were developed. Care was taken to cauterize any small punctate bleeders with a Bovie. Next, the iliotibial band was then incised along the skin incision, retracted both anteriorly and posteriorly using a Charnley retractor over moistened surgical towels. Next, abductor split was made over the neck and head of the femur down to the level of the trochanter and then this was carried around the greater trochanter and then down the shaft of the femur via the vastus lateralis. All soft tissues were then sharply elevated with electrocautery anteriorly including the gluteus medius, the gluteus sav, the capsule and then the vastus lateralis. The fractured femoral neck was clearly identified and then a sagittal saw was used to resect the proximal neck cut without any difficulty approximately one fingerbreadth proximal to the lesser trochanter. Next, the femoral head was extracted from the acetabulum and measured to be approximately 53 mm in diameter. A 53 mm trial was placed with appropriate retractors around the acetabulum, noted to have excellent fit and stability. Then box osteotome and trial reamer placed in the proximal femur followed by sequential upbroaching until a size 11 was firmly placed. Next, the calcar reamer was utilized to smooth the proximal femur followed by placement of a - 3.5 mm neck, 135 neck angle and a 53 mm outer diameter trial. This was reduced and noted to have excellent stability and range of motion. Leg lengths were reapproximated to neutral and then all trial implants were then removed. Pulsatile lavage with 3 liters of the solution was used to lavaged the femur, acetabulum and then all soft tissues. Next, final implant of a size 11 Gaby ML taper femoral implant with a ____ angle -3 site with a standard offset was implanted without difficulty and a 28 mm [place] chrome head -3.5 length and a 53 mm inner diameter, 53 mm outer diameter bipolar head was then placed. The acetabulum was then suctioned, reduced. Excellent range of motion and recreation of leg length was achieved. Shuck test was nearly perfect. The leg lengths were restored. Excellent stability. Next, pulsatile lavage was used to cleanse the deep capsule and all soft tissues. Next a #5 Tycron was placed through the greater trochanter and sutured through the anterior capsule, gluteus minimus and then into the gluteus medius and then sutured back to the greater trochanter with two deep Hemovac drains placed. Suture was then tied and cut followed by two [id number] sutures of #5 Tycron in the proximal capsule. Next, the vastus lateralis was then closed using interrupted #1 Vicryl. The gluteus sav was closed using #1 Vicryl. The iliotibial band was closed using #1 Vicryl. The wound was copiously irrigated with pulsatile lavage and then the dermis was closed using buried interrupted 2-0 Vicryl. Skin was closed using skin perfecto. A sterile compressive dressing was applied overwrapped with foam tape. The patient was then awakened and taken to recovery in stable condition with an abductor pillow. I attest to the content of the Intraoperative Record and any orders documented therein. Any exception s are noted below.
--- NOTE | 2019-09-06 08:16 | Anesthesiology Progress Note ---
Date of Service September 06, 2019 Anesthesia Post Procedure Vital Signs Vital Signs: Temp Pulse Pulse Pulse Resp BP BP 09/06/19 07:38 36.6 C 91 H 14 131/77 09/06/19 03:00 37.2 C 90 16 147/77 H 09/05/19 22:50 09/05/19 22:40 36.6 C 82 20 110/64 09/05/19 21:40 36.6 C 89 19 146/80 H 09/05/19 21:19 36.4 C L 94 H 18 135/69 09/05/19 20:24 36.8 C 102 H 16 143/69 H 09/05/19 19:59 36.8 C 94 H 18 137/79 09/05/19 19:40 36.8 C 90 16 131/80 09/05/19 19:30 91 H 16 134/82 09/05/19 19:20 93 H 19 147/81 H 09/05/19 19:10 87 14 156/82 H 09/05/19 19:03 37.6 C H 88 18 155/81 H 09/05/19 16:10 37.6 C H 88 20 186/104 H 09/05/19 15:37 36.9 C 89 18 188/86 H 09/05/19 11:18 37.5 C 87 20 174/81 H Pulse Ox 09/06/19 07:38 90 09/06/19 03:00 97 09/05/19 22:50 95 09/05/19 22:40 84 L 09/05/19 21:40 99 09/05/19 21:19 90 09/05/19 20:24 90 09/05/19 19:59 96 09/05/19 19:40 94 09/05/19 19:30 96 09/05/19 19:20 94 09/05/19 19:10 100 09/05/19 19:03 99 09/05/19 16:10 94 09/05/19 15:37 94 09/05/19 11:18 94 Pain Intensity Left Thigh: Pain Intensity: 0 Notes Mental Status: alert / awake / arousable and participated in evaluation Patient Amnestic to Procedure: Yes Nausea / Vomiting: adequately controlled Pain: adequately controlled Airway Patency, RR, SpO2: stable & adequate Hydration State: stable & adequate Neuraxial Anesthesia: was administered and sensory block is resolving Anesthetic Complications: no major complications apparent and Pt Satisfied with anesthetic care
--- NOTE | 2019-09-06 08:22 | Orthopedic Progress Note ---
Date of Service September 06, 2019 Assessment & Plan (1) Subcapital fracture of left hip: Postop day 1 status post left bipolar hemiarthroplasty PT/OT protocols. Weightbearing as tolerated. DVT prophylaxis-enoxaparin, SCDs. Pain management-IV hydromorphone, p.o. oxycodone, p.o. acetaminophen Subjective Postop day 1 Patient is currently resting in her bed. She is awake but appears somewhat somnolent. She is easily aroused. She does answer questions appropriately. She denies any pain in the left hip at this time. She denies any calf pain. Denies shortness of breath, chest pain. She appears comfortable. Physical Exam Physical Exam: Dressings are clean, dry, intact. Soft nontender. Neurovascular is intact. Toes are mobile. She has good dorsiflexion and plantarflexion of the left foot and ankle. Leg lengths appear equal. Results & Data ([facility]) Vital Signs (Past 12 Hours) Vital Signs Temp Pulse Pulse Resp BP Pulse Ox 09/06/19 07:38 36.6 C 91 H 14 131/77 90 09/06/19 03:00 37.2 C 90 16 147/77 H 97 09/05/19 22:50 95 09/05/19 22:40 36.6 C 82 20 110/64 84 L 09/05/19 21:40 36.6 C 89 19 146/80 H 99 09/05/19 21:19 36.4 C L 94 H 18 135/69 90 09/05/19 20:24 36.8 C 102 H 16 143/69 H 90 Laboratory Results Laboratory Results WBC 11.26 K/uL (4.8-10.8) H 09/06/19 05:54 RBC 3.95 M/uL (4.2-5.4) L 09/06/19 05:54 Hgb 11.9 g/dL (12.0-16.0) L 09/06/19 05:54 Hct 36.2 % (37-47) L 09/06/19 05:54 MCV 91.6 fL (80-100) 09/06/19 05:54 MCH 30.1 pg (25-34) 09/06/19 05:54 MCHC 32.9 g/dL (32-36) 09/06/19 05:54 RDW Std Deviation 42.9 fL (36.4-46.3) 09/06/19 05:54 RDW Coeff of Carisa 12.7 % (11.5-14.5) 09/06/19 05:54 Plt Count 105 K/uL (130-400) L 09/06/19 05:54 MPV 12.0 fL (7.4-10.4) H 09/06/19 05:54 Immature Gran % (Auto) 0.3 % 09/06/19 05:54 Neut % (Auto) 86.9 % 09/06/19 05:54 Lymph % (Auto) 3.8 % 09/06/19 05:54 [place] % (Auto) 8.9 % 09/06/19 05:54 Eos % (Auto) 0.0 % 09/06/19 05:54 Baso % (Auto) 0.1 % 09/06/19 05:54 Immature Gran # (Auto) 0.03 K/uL (0.00-0.02) H 09/06/19 05:54 Neut # (Auto) 9.79 K/uL (1.4-6.5) H 09/06/19 05:54 Lymph # (Auto) 0.43 K/uL (1.2-3.4) L 09/06/19 05:54 [place] # (Auto) 1.00 K/uL (0.11-0.59) H 09/06/19 05:54 Eos # (Auto) 0.00 K/uL (0-0.5) 09/06/19 05:54 Baso # (Auto) 0.01 K/uL (0-0.2) 09/06/19 05:54 Platelet Estimate Decreased (Normal) L 09/06/19 05:54 PT 11.9 Seconds (9.0-12.0) 09/05/19 06:46 INR 1.2 (0.9-1.1) H 09/05/19 06:46 APTT 24.7 Seconds (21.0-31.0) 09/04/19 06:26 PTT Ratio 0.9 09/04/19 06:26 Sodium 140 mmol/L (136-145) 09/06/19 05:54 Potassium 4.4 mmol/L (3.5-5.1) 09/06/19 05:54 Chloride 108 mmol/L (98-107) H 09/06/19 05:54 Carbon Dioxide 27 mmol/L (21-32) 09/06/19 05:54 Anion Gap 5.0 (3-11) 09/06/19 05:54 BUN 22 mg/dl (7-18) H 09/06/19 05:54 Creatinine 0.71 mg/dl (0.6-1.2) 09/06/19 05:54 Est Cr Clr Drug Dosing Not Reportable 09/06/19 05:54 Est GFR ( Amer) 91.9 09/06/19 05:54 Est GFR (Non-Af Amer) 79.3 09/06/19 05:54 BUN/Creatinine Ratio 31.0 (10-20) H 09/06/19 05:54 Glucose 146 mg/dl (70-99) H 09/06/19 05:54 Fasting Glucose 146 mg/dl (70-99) H 09/06/19 05:54 Calcium 8.9 mg/dl (8.5-10.1) 09/06/19 05:54 Magnesium 2.0 mg/dl (1.8-2.4) 09/06/19 05:54 Urine Color Yellow 09/04/19 06:30 Urine Appearance Clear (Clear) 09/04/19 06:30 Urine pH 7.0 (4.5-7.5) 09/04/19 06:30 Ur Specific [place] 1.012 (1.000-1.030) 09/04/19 06:30 Urine Protein Negative (Negative) 09/04/19 06:30 Urine Glucose (UA) Negative (Negative) 09/04/19 06:30 Urine Ketones Trace (Negative) H 09/04/19 06:30 Urine Blood Negative (Negative) 09/04/19 06:30 Urine Nitrite Negative (Negative) 09/04/19 06:30 Urine Bilirubin Negative (Negative) 09/04/19 06:30 Urine Urobilinogen Negative (Negative) 09/04/19 06:30 Ur Leukocyte Esterase Negative (Negative) 09/04/19 06:30 Blood Type O Positive 09/04/19 07:03 Antibody Screen NEGATIVE 09/04/19 07:03 (1) Subcapital fracture of left hip Encounter type: initial encounter Fracture type: closed Qualified Code(s): S72.012A - Unspecified intracapsular fracture of left femur, initial encounter for closed fracture
[2019-09-06] MEDS: CITALOPRAM 20 MG TAB PO SCH (08:34)
[2019-09-06] MEDS: CHOLECALCIFEROL (VITAMIN D) 400 UNITS TABLET PO SCH (08:34)
[2019-09-06] MEDS: DOCUSATE SODIUM 100 MG CAP PO SCH ×2 (08:34→20:16)
[2019-09-06] MEDS: MULTIVITAMIN TAB PO SCH (08:34)
[2019-09-06] MEDS: CARBIDOPA/LEVODOPA 25/100MG TAB PO SCH ×3 (08:34→20:17)
[2019-09-06] MEDS: METOPROLOL SUCC 25MG EXT REL TAB PO SCH (08:34)
[2019-09-06] MEDS: HEPARIN SOD 5,000 UNIT/0.5 ML VIAL SQ SCH ×2 (12:24→22:30)
[2019-09-06] MEDS ORDERED: ENOXAPARIN INJ 30 MG/0.3 ML SYR SQ SCH (13:00)
[2019-09-06] MEDS: RASAGILINE 1 MG PO SCH (20:15)
[2019-09-06] MEDS: SENNA 8.6 MG TAB PO SCH (20:16)
[2019-09-07] MEDS: LEVOTHYROXINE SODIUM 50 MCG TABLET PO SCH (05:40)
[2019-09-07] MEDS ORDERED: SODIUM CHLORIDE 0.9% 500 ML IV ONE (06:11)
--- NOTE | 2019-09-07 06:17 | Hospitalist Progress Note ---
Date of Service September 06, 2019 Assessment & Plan (1) Fall: (2) Subcapital fracture of left hip: Orthopedics service consulted in ED Pain management in ED, IV morphine IV fluids, normal saline started in ED, will continue admitted to telemetry, even though she has no known cardiac conditions, and EKG in ED showed sinus rhythm as well as on telemetry pt remained in sinus rhythm, patient previously reported dizziness to her , will continue monitor if pt was dizzy, this was most likely due to dehydration, and therefore will continue IV fluids Now s/p L hip hemiarthroplasty (09/05/2019) w/ Dr. Willingham, tolerated procedure well DVT ppx - ASA 81 bid or lovenox (per ortho service) PT/OT (3) Left thigh pain: As above - currently denies any pain Poor appetite, progressive weight loss, patient is possibly malnourished -Per , reportedly patient does not eat or drink much, small amount of ketones found in urine, BUN over creatinine ratio larger than 20 - consult nutrition (4) Parkinson's disease: We will continue her home medications, carbidopa-levodopa, and rasagiline (5) Hypothyroidism: We will continue levothyroxine (6) DVT prophylaxis: SCDs, further recs for DVT ppx per Ortho- plan for ASA 81 mg bid or lovenox CODE STATUS: CODE STATUS discussed with the patient and her on admiss ion, patient was not clear about her wishes, and therefore agreed to be full code for now. Per , patient had a paperwork filled out previously and he thought that she said DNR before. POA is are her son. We will discuss further. Subjective Pt is sitting up in the chair, in NAD. No acute events overnight. Pt's son at the bedside. Pt denies any pain, fever, chills, chest pain or shortness of breath. Also denies any abd. pain, nausea or vomiting. However complains of dizziness. VS checked, nl. Pt answers questions appropriately. Update: In the afternoon checked on the pt, denies any more dizziness. Review of Systems Review of Systems: All systems reviewed & are unremarkable except as noted in HPI & below Constitutional: no fever and no chills Respiratory: no cough and no dyspnea Cardiovascular: no chest pain, no palpitations and no edema Gastrointestinal: no abdominal pain, no nausea and no vomiting Neurologic: + dizziness Physical Exam Constitutional: + ill appearing and + thin Eyes: PERRL, conjunctivae normal, anicteric sclerae EOM intact bilaterally ENMT: external ear and nose normal, oropharynx normal Neck: trachea midline, no thyromegaly normal visual inspection Respiratory: normal respiratory effort, lungs clear to auscultation Auscultation: no rales, no rhonchi and no wheezes Cardiovascular: RRR, no murmur, no edema Chest (Breasts): Chest: normal inspection of chest Gastrointestinal (Abdomen): Inspection/Auscultation: abdomen normal to inspection and normal bowel sounds; abdomen not distended Percussion/Palpation: abdomen soft; abdomen nontender and no guarding Musculoskeletal: Head/Neck/Chest: normocephalic and head atraumatic Extremities: + limited ROM of extremities (left hip fracture s/p surg. repair, low extremities are well-perfused, good capillary refill, no sensory loss noted) Skin: no rashes, warm and dry Neurologic: PERRL, EOMI, accommodation nl, no face palsy, no dysarthria moves all extremities Psychiatric: Orientation: oriented x 3 Affect: + flat affect Genitourinary: no CVA tenderness Lymphatic: no cervical or axillary lymphadenopathy Results & Data ([facility]) Vital Signs (Past 12 Hours) Vital Signs Temp Pulse Resp BP Pulse Ox 09/06/19 23:27 36.7 C 86 16 125/71 92 Laboratory Results reviewed Medications Administered reviewed (1) Fall Encounter type: initial encounter Qualified Code(s): W19.XXXA - Unspecified fall, initial encounter (2) Subcapital fracture of left hip Encounter type: initial encounter Fracture type: closed Qualified Code(s): S72.012A - Unspecified intracapsular fracture of left femur, initial encounter for closed fracture
[2019-09-07 06:54] LABS: Hematocrit (blood only) 29.2 % (37-47); Hemoglobin 9.8 g/dL (12.0-16.0); Mean Corpuscular Hemoglobin 30.6 pg (25-34); Mean Corpuscular Hgb Conc 33.6 g/dL (32-36); Mean Corpuscular Volume 91.3 fL (80-100); RDW Coefficient of Variation 12.8 % (11.5-14.5); RDW Standard Deviation 43.2 fL (36.4-46.3); White Blood Count 7.47 K/uL (4.8-10.8)
[2019-09-07 06:59] LABS: Mean Platelet Volume 11.6 fL (7.4-10.4); Platelet Count 93 K/uL (130-400)
[2019-09-07 07:16] LABS: Eosinophils # (auto) 0.04 K/uL (0-0.5); Eosinophils % (auto) 0.5 %; Giant Platelets 1+; Immature Granulocytes # (auto) 0.01 K/uL (0.00-0.02); Immature Granulocytes % (auto) 0.1 %; Lymphocytes # (auto) 0.63 K/uL (1.2-3.4); Lymphocytes % (auto) 8.4 %; Monocytes # (auto) 0.89 K/uL (0.11-0.59); Monocytes % (auto) 11.9 %; Neutrophils % (auto) 79.1 %
[2019-09-07 07:24] LABS: BUN Creatinine Ratio 38.5 (10-20); Blood Urea Nitrogen 22 mg/dl (7-18); Calcium 8.9 mg/dl (8.5-10.1); Carbon Dioxide 30 mmol/L (21-32); Chloride 108 mmol/L (98-107); Est GFR (African American) 100.1; Est GFR (Non-African American) 86.3; Glucose 99 mg/dl (70-99); Magnesium 2.1 mg/dl (1.8-2.4); Potassium 4.4 mmol/L (3.5-5.1); Sodium 140 mmol/L (136-145)
[2019-09-07] MEDS: CITALOPRAM 20 MG TAB PO SCH (07:44)
[2019-09-07] MEDS: CHOLECALCIFEROL (VITAMIN D) 400 UNITS TABLET PO SCH (07:44)
[2019-09-07] MEDS: DOCUSATE SODIUM 100 MG CAP PO SCH (07:45)
[2019-09-07] MEDS: MULTIVITAMIN TAB PO SCH (07:45)
[2019-09-07] MEDS: CARBIDOPA/LEVODOPA 25/100MG TAB PO SCH (07:45)
[2019-09-07] MEDS: METOPROLOL SUCC 25MG EXT REL TAB PO SCH (07:45)
[2019-09-07] MEDS: HEPARIN SOD 5,000 UNIT/0.5 ML VIAL SQ SCH (07:46)
--- NOTE | 2019-09-07 08:00 | Orthopedic Progress Note ---
Date of Service September 07, 2019 Assessment & Plan (1) Subcapital fracture of left hip: Postop day 2 status post left bipolar hemiarthroplasty PT/OT protocols. Weightbearing as tolerated. DVT prophylaxis-enoxaparin, SCDs. Pain management-IV hydromorphone, p.o. oxycodone, p.o. acetaminophen Subjective Patient sleeping today at visit. Comfortable. Physical Exam Constitutional: no acute distress (vitals stable) Musculoskeletal: Hip: + surgical incision (left lateral hip dressing C/D/I. Has been changed from post op dressing.); hip normal to inspection, no deformity, no skin erythema, no ecchymosis, no surgical drain present (hemovac has been removed. Drained 190 cc.) and no crepitation with hip ROM Results & Data ([facility]) Vital Signs (Past 12 Hours) Vital Signs Temp Pulse Resp BP Pulse Ox 09/07/19 06:53 37.0 C 83 16 157/71 H 93 09/06/19 23:27 36.7 C 86 16 125/71 92 (1) Subcapital fracture of left hip Encounter type: initial encounter Fracture type: closed Qualified Code(s): S72.012A - Unspecified intracapsular fracture of left femur, initial encounter for closed fracture
--- NOTE | 2019-09-07 10:42 | Discharge Summary ---
Date of Service September 07, 2019 Admission HPI Per Admitting Provider Mrs. Pema Carias is an 84-year-old female, with history of hypothyroidism, Parkinson's disease, osteoporosis, who fell earlier this morning, and was diagnosed in ED with left hip fracture. Patient lives with her , provided most of the history, says that patient stood up in the morning, and was walking around the bed, and tripped over the bench at the foot of the bed, however at that time she was able to catch herself and he did not think she hurt herself. However she got up again later and unfortunately the same thing happened and he found her laying over the bench. She was complaining about left thigh pain, and so he brought her to the hospital, where she was diagnosed with a left hip fracture. Patient denies any loss of consciousness, however she told her previously that she felt little dizzy. Patient's confirms that unfortunately patient has very poor appetite which has been worsening and so she does not eat or drink very much. Denies any known heart condition, patient also does not take any cardiac medications. Patient denies any chest pain, shortness of breath, abdominal pain, nausea or vomiting. She also denies any dizziness or lightheadedness. She just says that she feels very tired and she has pain in her leg. Patient's mentions that she usually walks by herself, does not use a walker, however her walking has been slowing down in the past couple of months. Patient is treated for Parkinson's disease and hypothyroidism. In the ED, EKG showed normal sinus rhythm. Chest x-ray did not show any acute abnormality. Patient denied any recent illness. She received morphine in the ED for pain. mentions that they have 2 sons, they both live in [place], and they are patient's POA's. He mentions that patient filled out paperwork regarding her CODE STATUS and wishes however he does not have the paperwork with him. He also says that at that time he believes she wanted to be DNR however he is not sure. When I talked to the patient, she could not give me a straight answer regarding her CODE STATUS Admission Exam Per Admitting Provider Physical Exam: Elderly female lying in bed, in slight discomfort due to pain, and on nasal cannula Constitutional: + ill appearing and + thin Eyes: PERRL, conjunctivae normal, anicteric sclerae EOM intact bilaterally ENMT: external ear and nose normal, oropharynx normal Neck: trachea midline, no thyromegaly normal visual inspection Respiratory: normal respiratory effort, lungs clear to auscultation Auscultation: no rales, no rhonchi and no wheezes Cardiovascular: RRR, no murmur, no edema Chest (Breasts): Chest: normal inspection of chest Gastrointestinal (Abdomen): Inspection/Auscultation: abdomen normal to inspection and normal bowel sounds; abdomen not distended Percussion/Palpation: abdomen soft; abdomen nontender and no guarding Musculoskeletal: Head/Neck/Chest: normocephalic and head atraumatic Extremities: + limited ROM of extremities (Due to pain in the left hip, left thigh (secondary to left hip fracture), low extremities are well-perfused, good capillary refill, no sensory loss noted) Skin: no rashes, warm and dry Neurologic: PERRL, EOMI, accommodation nl, no face palsy, no dysarthria moves all extremities Psychiatric: Orientation: oriented x 3 Affect: + flat affect Speech slow, patient is drowsy, however able to answer questions Genitourinary: no CVA tenderness Lymphatic: no cervical or axillary lymphadenopathy Principal Diagnosis L Hip fracture s/p repair-status post left bipolar hemiarthroplasty Parkinson's disease: Hypothyroidism: Discharge Exam Physical Exam Gen-AAO x 3, NAD, Afebrile Head-NCAT, EOMI, PERRLA, Anicteric Sclera, No Posterior Pharyngeal Erythema Neck-Supple, No JVD, No Thyromegaly, No Masses, No LAD, No Bruits Lungs-Clear to Auscultation Bilaterally, No Rales, No Rhonchi, No Wheezing, No Crepitus Chest-No S4, +S1, +S2, No S3, No Murmurs, No Rubs, No Gallops, No Ectopy Abdomen-Soft, Bowel Sounds Present, Non Tender, Non Distended, No Hepatomegaly, No Splenomegaly, No Palpable Masses, No Rebound, No Rigidity, No Guarding Musculoskeletal-Full Range of Motion Bilaterally, No CVAT Extremities-No Cyanosis, No Clubbing, No Edema Nuero-Cranial Nerves II-XII grossly intact, Motor WNL, DTRs WNL, Strength WNL, Non Focal Psych-Normal Mood Discharge Data Allergies Allergy/AdvReac Type Severity Reaction Status Date / Time iodine Allergy Mild rash Verified 09/04/19 04:40 Sulfa (Sulfonamide Allergy Mild RASH Verified 09/04/19 04:40 Antibiotics) Consultations 09/04/19 06:10 Consult Case Management - Discharge Planning Routine 09/04/19 06:52 ED Decision to Admit Stat 09/04/19 07:04 Consult Orthopedic Surgery Stat 09/06/19 08:00 Consult Case Management - Discharge Planning Routine Procedures Performed Operation Date: 09/05/19 07:00 Actual Procedures p Left Hip Hemiarthroplasty, uncemented(Left) - Mark Willingham, Hospital Course (1) Fall: (2) Subcapital fracture of left hip: Orthopedics service consulted in ED Pain management in ED, IV morphine IV fluids, normal saline started in ED, will continue admitted to telemetry, even though she has no known cardiac conditions, and EKG in ED showed sinus rhythm as well as on telemetry pt remained in sinus rhythm, patient previously reported dizziness to her , will continue monitor if pt was dizzy, this was most likely due to dehydration, and therefore will continue IV fluids s/p L hip hemiarthroplasty (09/05/2019) w/ Dr. Willingham, tolerated procedure well DVT ppx - (per ortho service) PT/OT, WBAT (3) Left thigh pain: As above - currently denies any pain Poor appetite, progressive weight loss, patient is possibly malnourished -Per , reportedly patient does not eat or drink much, small amount of ketones found in urine, BUN over creatinine ratio larger than 20 - consult nutrition (4) Parkinson's disease: We will continue her home medications, carbidopa-levodopa, and rasagiline (5) Hypothyroidism: We will continue levothyroxine (6) DVT prophylaxis: SCDs, further recs for DVT ppx per Ortho, Lovenox CODE STATUS: CODE STATUS discussed with the patient and her on admission, patient was not clear about her wishes, and therefore agreed to be full code for now. Per , patient had a paperwork filled out previously and he thought that she said DNR before. POA is are her son. Total Time Total Time Spent Total Time Spent (In Minutes): 40 mins Total Time Includes: Examination of the Patient, Discharge Planning, Medication Reconciliation and Communication With Other Providers Discharge Plan Discharge Items Patient Disposition: Transfer [facility] Reason For Visit: L HIP FX Discharge Diagnosis: Left subcapital hip fracture Condition on Discharge: Good Health Concerns: Fall risk Activity: Per Instructions section Lifting: Gradually increase as tolerated Bathing: No limitations and Keep incision dry Sexual Activity: Wait until after follow-up appointment Exercise/Sports: Gradually increase as tolerated and Wait until after follow-up appointment Driving/Machine Use: None Weightbearing: Full weightbearing Weightbearing Comment: As tolerated with walker Non-emergency contact: Surgeon Call non-emergency contact if: your pain is not controlled, your temperature is above 101.5, your wound has increased redness and your wound has increased drainage Follow-up/Referrals: Elvis Cabral DO [Primary Care Provider] - Mark Willingham DO [Surgeon] - (Call for instructions) Diet: Regular Addtl Attending Provider Instructions: As below Addtl Cigar Bander Provider Instructions: ACTIVITY RECOMMENDATIONS: SELF CARE INSTRUCTIONS AFTER TOTAL HIP HEMIARTHROPLASTY Until the incision and soft tissues around your hip have healed, there is a possibility that the hip prosthesis could dislocate. A. Observe the following precautions to prevent dislocation: 1. Don't bend your hip greater than 90 degrees. 2. Avoid crossing your legs or ankles while standing or lying. 3. Sit with your feet placed 6 inches apart. 4. When sitting, keep your knees below your hips. Sit on a firm surface, avoid deep, soft chairs and couches. Use an elevated toilet seat in the bathroom. 5. Don't bend over at the waist. Use a long handled shoehorn and a sock aid to help you put on your shoes and socks. A painter apprentice can help you draft roller picker objects that are too high or too low to reach. 6. Keep car riding to a minimum for at least one month after surgery. B. Your balance may be shaky for a while. Use crutches or a walker until directed by your doctor. C. Use hand rails when walking on stairs. D. Wear low heeled shoes with non-slip soles. E. Be sure that your floors are free of things that could trip you - throw rugs, electrical cords, small objects. Avoid wet and waxed floors, especially with crutches and canes. F. Try to walk several times a day with rest periods between. G. Continue with all the exercises taught to you in the hospital. Again, make walking a part of your daily routine. SPECIAL CARE INSTRUCTIONS: VERY IMPORTANT TO READ AND REVIEW A. You may still be at risk for phlebitis and blood clots. 1. Wear surgical stockings (TOBI hose) for 2 weeks after surgery to improve circulation and reduce swelling. 2. Take Aspirin or Lovenox as directed for 4 weeks or as directed by your doctor. This is your blood thinner. 3. High risk patients may be prescribed a stronger blood thinner if necessary. 4. If you are on Coumadin normally, your family doctor/mailmaster should monitor your blood work. Expect a phone call the day of or the day after bloodwork is drawn to adjust your dosage. B. You must take antibiotics before having dental work, bladder, bowel and other surgery. Your doctor will provide you with a permanent card to carry describing precautions. C. Call [facility] if you have a fever, redness or swelling around the incision, cloudy drainage from incision, or sudden increase in pain in your hip, not relieved by your regular pain medication. D. Please call the office at if you have any concerns or questions about your operation or recovery. * YOU MAY SHOWER, NO TUB BATHS UNTIL CLEARED BY YOUR DOCTOR. * WEAR TOBI HOSE 20 HOURS PER DAY FOR 2 WEEKS. * YOU SHOULD USE A WALKER OR CRUTCHES FOR 2-4 WEEKS. THIS WILL HELP PREVENT STRAIN ON YOUR HIP MUSCLE AND ALLOW IT TO HEAL PROPERLY. YOU MAY WEAN TO A CANE TOLERATED. * MOST PATIENTS WILL HAVE HOME NURSING FOR THERAPY. IF YOU DECIDE TO DO OUTPATIENT PHYSICAL THERAPY, PLEASE SCHEDULE THIS 3 TIMES PER WEEK. * DAILY DRESSING CHANGES SHOULD BE DONE UNTIL YOU ARE SEEN BACK IN THE OFFICE IN 2 WEEKS FOR A WOUND CHECK. . FOLLOW UP VISIT: If appointment is not already scheduled: Please call [facility] to make a follow-up appointment for 2 weeks after your surgery at . Pending Studies at Discharge: No Stand-Alone Forms: My [employer] Skilled Items Patient informed of condition?: Yes DNR: Yes Discharge Level of Care: Skilled Communicable Disease: No Discharge Prognosis: Stable Lines: None Urinary Catheter: No Medications and DC Order Prescriptions: New acetaminophen [Mapap (acetaminophen)] 325 mg Tablet 650 mg PO Q4H PRN (Reason: fever or pain) Qty: 30 RF: 0 oxycodone 5 mg Tablet 5 - 10 mg PO Q4H PRN (Reason: Hip Fracture) Qty: 30 RF: 0 multivitamin [Daily-Stef] Tablet 1 tab PO QAM Qty: 30 RF: 0 sennosides [Senokot] 8.6 mg Tablet 17.2 mg PO HS Qty: 30 RF: 0 bisacodyl [Laxative (bisacodyl)] 10 mg Suppository 10 mg UT DAILY PRN (Reason: constipation) Qty: 30 RF: 0 docusate sodium 100 mg Capsule 100 mg PO BID Qty: 30 RF: 0 MAG-AL 200-200 mg/5 mL Suspension 15 ml PO Q4H PRN (Reason: dyspepsia) Qty: 300 RF: 0 enoxaparin [Lovenox] 30 mg/0.3 mL syringe 30 mg SQ DAILY Qty: 9 RF: 0 Continued carbidopa-levodopa 25-100 mg Tablet 1 tab PO TID RF: 0 cholecalciferol (vitamin D3) [Vitamin D3] 400 unit Capsule 400 unit PO DAILY RF: 0 citalopram 20 mg Tablet 20 mg PO DAILY RF: 0 levothyroxine 50 mcg Tablet 50 mcg PO DAILY RF: 0 metoprolol succinate 25 mg Tablet Extended Release 24 Hr 25 mg PO DAILY RF: 0 rasagiline [Azilect] 1 mg Tablet 1 mg PO QPM RF: 0 Discharge Orders: Discharge Order (Routine); Ordered 09/07/19 Ordered By: Baljit Montenegro Admission Data Admit Date/Time: 09/04/19 08:49 Attending Provider: Baljit Montenegro Admit Provider: Mark Willingham Primary Care Provider: Elvis Cabral Other Providers: Vipul Marroquin ; Mark Willingham
== END 2019-09-07 12:12 | DRG 482 ==
LOC: ED 04:17 → 2N 08:49 → SUATTDRO 08:49 → 2N 09:05 → 3N 09-05 19:54